=== PATIENT | male | born 1965 | race Caucasian/White ===

== ENCOUNTER 2019-08-08 11:36 | Emergency (ER) | payer OTHER ==
[~2019-08-08] VITALS: Ht 175.3 cm; Wt 75.7 kg
--- NOTE | 2019-08-08 11:39 | NUR ---
PATIENT BIBA TO BED 7 AT THIS TIME.
--- NOTE | 2019-08-08 11:40 | NUR ---
BIBA C/O DIZZINESS AND NAUSEA/VOMITING X TODAY AT [facility]. PT REPORTS WALKING WHEN DIZZINESS STARTED. PT CONTINUOUSLY BLINKS WHEN ASKED TO OPEN EYES. EYES CONTINUE TO MAKE UNCONTROLLED MOVEMENTS WHEN PT OPENS THEM. 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 EMS INSERTED IV AND ADMINISTERED ZOFRAN 4 MG-PT REPORTS RELIEF WITH NAUSEA PMH- DENIES
--- NOTE | 2019-08-08 11:43 | NUR ---
ACCU CHECK 111
[2019-08-08 11:45] VITALS: BP 108/69
--- NOTE | 2019-08-08 11:47 | NUR ---
DR. MC AT BEDSIDE EVALUATING PATIENT.
[2019-08-08] MEDS ORDERED: MECLIZINE 25 MG TAB PO ONE (11:55)
--- NOTE | 2019-08-08 12:03 | NUR ---
ANTIVERT PO ADMINISTERED
--- NOTE | 2019-08-08 12:14 | NUR ---
PT TAKEN TO CT VIA [facility]
--- NOTE | 2019-08-08 12:23 | NUR ---
PT RETURNED TO B[address]
--- NOTE | 2019-08-08 12:41 | NUR ---
PT STATES SOME RELIEF WITH DIZZINESS AFTER ANTIVERT, NOT COMPLETELY GONE. PT DENIES PAIN.
--- NOTE | 2019-08-08 13:05 | NUR ---
REPORT GIVEN TO GOPAL COOK
[2019-08-08 13:48] VITALS: BP 107/57
== END 2019-08-08 13:48 | disposition home or self-care (01) ==
LOC: MED 11:36
DX: H81.10 Benign paroxysmal vertigo, unspecified ear (principal)
CPT/HCPCS: 70450; 99284; J8597